=== PATIENT | male | born 1975 | race Caucasian/White ===

== ENCOUNTER → 2024-10-08 16:23 | Outpatient (BNV) | payer MEDICARE, MEDICAID, SELFPAY | PROVIDERS: Emergency Provider Emergency Medicine Emergency Medical Services; Visit Provider Radiology Diagnostic Radiology | DX: R22.42 Localized swelling, mass and lump, left lower limb (principal); R60.0 Localized edema | CPT/HCPCS: 73502; 73562; 73600; 93971 ==